=== PATIENT | female | born 1930 | race Caucasian/White ===

== ENCOUNTER 2017-04-04 11:11 | Outpatient (CLI) | payer MEDICARE, OTHER | END 2017-04-04 11:12 | LOC: POD 11:11 | PROVIDERS: ATTEND Podiatrist Public Medicine | DX: B35.1 Tinea unguium (principal); L60.0 Ingrowing nail; M79.675 Pain in left toe(s); M79.674 Pain in right toe(s) | CPT/HCPCS: G0463 ==

== ENCOUNTER 2017-08-01 10:05 | Outpatient (CLI) | payer MEDICARE, OTHER | END 2017-08-01 10:06 | LOC: POD 10:05 | PROVIDERS: ATTEND Podiatrist Public Medicine | DX: B35.1 Tinea unguium (principal); L60.0 Ingrowing nail; M79.675 Pain in left toe(s); M79.674 Pain in right toe(s) | CPT/HCPCS: 11721; G0463 ==

== ENCOUNTER 2017-10-31 09:49 | Outpatient (CLI) | payer MEDICARE, OTHER | END 2017-10-31 09:50 | LOC: POD 09:49 | PROVIDERS: ATTEND Podiatrist Public Medicine | DX: B35.1 Tinea unguium (principal); L60.0 Ingrowing nail; M79.674 Pain in right toe(s); M79.675 Pain in left toe(s) | CPT/HCPCS: 11721; G0463 ==

== ENCOUNTER 2019-05-31 18:57 | Emergency (ER) | payer MEDICARE, OTHER ==
--- NOTE | 2019-05-31 19:22 | ED Physician Documentation ---
General Adult - HISTORIAN Historian: patient - HPI Stated Complaint: "My blood pressure has been high this afternoon" Chief Complaint: General Adult Additional Information: 88 year old female presents with concerns about elevated blood pressures. She state that it all started a couple of weeks ago; she called her interior designer because her heart rate was in the 40s; she was instructed to stop metoprolol and take half of the losartan; blood pressures started getting high and she was instructed to take a full tablet. Blood pressures are starting to normalize looking at her list of blood pressures. But tonight it was elevated and she just wanted to have it checked. She denies any chest pain, SOA, headaches or slurred speech. Onset: days ago Timing: better Severity: mild Modifying Factors: aysmptomatic hypertension - ROS CONST: no problems EYES/ENT: none CVS/RESP: none GI/: none MS/SKIN/LYMPH: none NEURO/PSYCH: denies: headache, dizziness, tingling, difficulty with speech - PAST HX Past History: A-Fib, hypertension Surgeries/Procedures: hysterectomy, other (orthopedic) Immunizations: UTD Allergies/Adverse Reactions: Allergies Allergy/AdvReac Type Severity Reaction Status Date / Time No Known Allergies Allergy Verified 05/31/19 19:27 Home Medications: Ambulatory Orders Medication Instructions Recorded Fluticasone Propionate [Flonase] 16 gm NS DAILY 06/25/13 Ranitidine HCl [Zantac] 150 mg PO BID u2 06/25/13 Clonidine HCl [Catapres] 0.1 mg PO DAILY PRN #15 tablet 05/31/19 Gabapentin 400 mg PO BID 05/31/19 Losartan Potassium [Cozaar] 25 mg PO 0600 05/31/19 - SOCIAL HX Smoking History: non-smoker Alcohol Use: none Drug Use: none - FAMILY HX Family History: No - VITAL SIGNS Vital Signs: Vital Signs Temp Pulse Resp BP Pulse Ox 98.7 F 81 16 201/94 98 05/31/19 19:00 05/31/19 19:00 05/31/19 19:00 05/31/19 19:00 05/31/19 19:00 - REVIEWED ASSESSMENTS Nursing Assessment Reviewed: Yes Vitals Reviewed: Yes Progress - Progress Progress: 20:20 patient resting comfortably; denies any CP, SOA, slurred speech. Patient was given Clonidine; will monitor blood pressure; labs are WNL ED Results Lab/Radiology - Orders Orders: ED Orders Category Date Time Status Continuous EKG monitoring Q30M Care 05/31/19 19:12 Ordered Continuous Pulse Oximetry Q30M Care 05/31/19 19:[address] IV Lock 1T Care 05/31/19 19:12 Ordered CBC/PLATELET/DIFF Stat Lab 05/31/19 19:12 Ordered CKMB Stat Lab 05/31/19 19:12 Ordered CMP Stat Lab 05/31/19 19:12 Ordered CREATINE KINASE Stat Lab 05/31/19 19:12 Ordered PT-INR Routine Lab 05/31/19 Ordered TROPONIN I Stat Lab 05/31/19 19:12 Ordered EKG WITH COMPARISON Stat Ther 05/31/19 19:12 Ordered General Adult Physical Exam - PHYSICAL EXAM GENERAL APPEARANCE: no distress EENT: eye inspection normal, ENT inspection normal, pharynx normal, HOMER NECK: normal inspection, supple RESPIRATORY: breath sounds normal CVS: heart sounds normal, equal pulses ABDOMEN: soft, normal bowel sounds SKIN: warm/dry, normal color EXTREMITIES: normal range of motion NEURO: oriented X3, CN's nml as tested, motor nml, sensation nml, mood/affect nml, cognition normal Discharge Clincal Impression: Hypertension Prescriptions: Clonidine HCl [Catapres] 0.1 mg PO DAILY PRN #15 tablet PRN Reason: BP > 170 Referrals: Rafia Whitlock MD [Primary Care Provider] - 2 Days Additional Instructions: May take Clonidine once a day as needed for systolic (top number) pressure greater than 170. Make sure to follow up with PCP next week for re-evaluation. Return to ER if you develop chest pain, shortness of breath, headache that wont go away, or slurred speech. Condition: Good Disposition: 01 HOME, SELF-CARE Decision to Admit: NO Decision Time: 20:45
[2019-05-31 19:53] LABS: BASOPHILS % 0.3 % (0.0-1.5); NEUTROPHILS # 3.7 # k/uL (1.4-7.7)
[2019-05-31] MEDS ORDERED: cloNIDine HCL 0.1 MG TABLET PO ONE (20:02)
[2019-05-31 20:04] LABS: eGFR (Non-African) > 60
[2019-05-31 20:23] LABS: APPEARANCE,URINE CLEAR (CLEAR); COLOR,URINE YELLOW (YELLOW); OCCULT BLOOD,URINE TRACE (NEGATIVE); PH URINE 7.5 (5.0 - 8.0); UROBILINOGEN URINE 0.2 Eu (0.2-1.0)
[2019-05-31] MEDS ORDERED: PHARMACY KEY 1 EACH EACH MC ONE (20:39)
[2019-05-31 21:13] VITALS: BP 159/79
== END 2019-05-31 20:50 | disposition home or self-care (01) ==
LOC: ED 18:57
DX: I10 Essential (primary) hypertension (principal)
CPT/HCPCS: 80053; 81002; 82550; 82553; 84484; 85025; 85610; 93005; 99283; 99284; S1016